=== PATIENT | male | born 1965 | race Caucasian/White ===

== ENCOUNTER 2018-07-31 04:29 | Observation (INO) | payer SELFPAY ==
[2018-07-31] VITALS (14 sets, daily range): BP systolic 101–140; BP diastolic 43–86; PULSE 55–82; RESP 14–16; TEMP 36.8–36.9; O2SAT 96–98; BMI 27.1
--- NOTE | 2018-07-31 04:33 | PCM.HP.STD ---
Problem List (1) Chest pain Status: Acute Qualifiers: Chest pain type: unspecified Qualified Code(s): R07.9 - Chest pain, unspecified (2) Cardiac enzymes elevated Status: Acute (3) LILIAM (obstructive sleep apnea) Status: Chronic History of Present Illness Date of Admission: 07/31/18 Chief Complaint: Chest pain The patient is a 53 y/o w/ PMHx: LILIAM who presents to the [facility] from [place] w/ history of onset fluttering in his chest with sensation of needing to take a deep breath but not specifically dyspnea with concurrent midsternal chest pressure with occasional radiation to the central neck region, intermittent, lasting minutes, starting afternoon prior to day of presentation with (RN) BP check at home elevated SBP 160s with no HTN history. Patient noted discomfort independent of activity. Chest pain during episode when discussed transfer with ED at [place]. Work-up at [place] included CBC w/ WBC 7.5, Hgb 13.8, Plts 287 without shift, BMP w/ K 3.7, BUN/Cr 17/0.91, glucose 118, Trop 0.18 (<0.07) indeterminant, D-dimer 373 (<450 normal), TSH 4.12 (normal), EKG: NSR with no ST changes, no evidence of ischemia, repeat x 1 and no change, CXR: No acute findings. In the [place] ED patient administered ASA 81 mg x 4. Past Medical History Past Medical History (Chronic Problems): Chronic Problems LILIAM (obstructive sleep apnea) (Chronic) NKDA Home Medications: Ambulatory Orders Medication Instructions Recorded NK 07/31/18 Surgical History: no surgical history Psychiatric History: No pertinent psych hx Lives: Spouse/ Significant Other Tobacco Use: Non-smoker Alcohol: None Drugs: None - *Family History Maternal History Items: - - Patient notes a maternal family history of suspected paroxysmal atrial fibrillation with history of ablation in addition to maternal grandfather with heart disease and CHF. Paternal History Items: - - Patient notes a paternal family history of heart disease and congestive heart failure in a paternal grandfather. Review of Systems Constitutional: Denies: Chills, Fever, Weight Change HEENT: Denies: Head Aches, Sinus Congestion, Sinus Drainage Cardiovascular: Reports: Chest Pain, Chest Pressure. Denies: Edema, Heaviness, Light Headedness, Orthopnea, Palpitations, Syncope Respiratory: Reports: Shortness of Breath. Denies: Cough, Shortness of breath at rest, Sputum production Gastrointestinal: Denies: Abdominal Pain, Nausea, Vomiting Genitourinary: Denies: Dysuria Musculoskeletal: Reports: Neck Pain. Denies: Joint Pain, Joint Tenderness Skin: Denies: Rash, Wounds Neurological: Denies: Numbness, Tingling, Focal weakness Psychiatric: Denies: Anxiety, Depression, Homicidal Ideations, Suicidal Ideations Hematologic/ Lymphatic: Denies: Easy Bruising, Easy Bleeding VTE Information - Inpt Only VTE Present on Admission: No VTE Mechan Device Prophylaxis: SCD's VTE Pharm Prophylaxis ordered?: Yes Subjective: Seated upright in the PCU bed, NAD. Objective: VS: T 98.5, RR 16, BP 140/86, HR 81, 98% on RA. Physical Examination: General: awake, alert, oriented x 3 and cooperative, seated upright in the PCU bed in no apparent distress. Skin: normal color, turgor, no icterus, cyanosis. HEENT: AT/NC, EOMI, PERRLA, MMM, no carotid bruits or JVD noted. Lungs: CTA bilaterally, moderate effort, mild decrease BL bases, no rales, ronchi or wheezing. Heart: Regular rate and rhythm; no gallop, rub audible. Abdomen: soft, NTTP, ND, normal BS, no HSM. Extremities: no cyanosis, clubbing, or edema. Neurological: patient awake, alert, oriented x 3; cognitive function intact; pupils equally reactive to light and accomodation; cranial nerves II-XII grossly normal, moving all 4 extremities, no focal deficits, strength preserved. Psychiatric: affect appears normal, no acute evidence of depressive or anxiety feelings. Assessment/Plan All Active Problems Chest pain (Acute) Cardiac enzymes elevated (Acute) The patient is a 53 y/o w/ no marked PMHx who presents to the [facility] from [place] w/ history of onset fluttering in his chest with sensation of needing to take a deep breath but not specifically dyspnea with concurrent midsternal chest pressure with occasional radiation to the central neck region, intermittent, lasting minutes, starting afternoon prior to day of presentation with (RN) BP check at home elevated SBP 160s with no HTN history. (1) Chest Pain: Work-up at [place] included CBC w/ WBC 7.5, Hgb 13.8, Plts 287 without shift, BMP w/ K 3.7, BUN/Cr 17/0.91, glucose 118, Trop 0.18 (<0.07) indeterminant, D-dimer 373 (<450 normal), TSH 4.12 (normal), EKG: NSR with no ST changes, no evidence of ischemia, repeat x 1 and no change, CXR: No acute findings. Will admit to PCU, place on a monitored bed to assure no acute myocardial infarction with serial cardiac enzymes and EKGs. Patient is able to perform exercise and does not have LBBB, V-pacing, ST-T changes, LVH, prior PCI history and is not on digoxin thus will proceed with AM exercise stress ECHO. ASA, NG, morphine. FLP in AM. Mag pending. (2) Elevated BP without HTN Dx: Will continue to monitor BP, if remains elevated would initiate regimen, PRN hydralazine in interim. (3) LILIAM: CPAP q HS. (4) DVT Prophylaxis: SCDs, lovenox. Code Visit OBSV E&M: 72258 Initial observation care L3
--- NOTE | 2018-07-31 04:35 | EKG12_ITS ---
Test Reason : AM EKG Blood Pressure : / mmHG Vent. Rate : 059 BPM Atrial Rate : 059 BPM P-R Int : 150 ms QRS Dur : 094 ms QT Int : 424 ms P-R-T Axes : 064 066 048 degrees QTc Int : 419 ms Sinus bradycardia Otherwise normal ECG When compared with ECG of 31-JUL-2018 05:17, MANUAL COMPARISON REQUIRED, DATA IS UNCONFIRMED Confirmed by WILLIS HERNANDEZ, LEIGHA ([id number]), manager editorial JAKE PADILLA ([id number]) on 08/03/2018 4:02:53 PM Referred By: DOROTA Confirmed By:LEIGHA PEDRO MD
--- NOTE | 2018-07-31 04:40 | HP.PCM_ITS ---
Problem List (1) Chest pain Status: Acute Qualifiers: Chest pain type: unspecified Qualified Code(s): R07.9 - Chest pain, unspecified (2) Cardiac enzymes elevated Status: Acute (3) LILIAM (obstructive sleep apnea) Status: Chronic History of Present Illness Date of Admission: 07/31/18 Chief Complaint: Chest pain The patient is a 53 y/o w/ PMHx: LILIAM who presents to the [facility] from [place] w/ history of onset fluttering in his chest with sensation of needing to take a deep breath but not specifically dyspnea with concurrent midsternal chest pressure with occasional radiation to the central neck region, intermittent, lasting minutes, starting afternoon prior to day of presentation with (RN) BP check at home elevated SBP 160s with no HTN history. Patient noted discomfort independent of activity. Chest pain during episode when discussed transfer with ED at [place]. Work-up at [place] included CBC w/ WBC 7.5, Hgb 13.8, Plts 287 without shift, BMP w/ K 3.7, BUN/Cr 17/0.91, glucose 118, Trop 0.18 (<0.07) indeterminant, D-dimer 373 (<450 normal), TSH 4.12 (normal), EKG: NSR with no ST changes, no evidence of ischemia, repeat x 1 and no change, CXR: No acute findings. In the [place] ED patient administered ASA 81 mg x 4. Past Medical History Past Medical History (Chronic Problems): Chronic Problems LILIAM (obstructive sleep apnea) (Chronic) NKDA Home Medications: Ambulatory Orders Medication Instructions Recorded NK 07/31/18 Surgical History: no surgical history Psychiatric History: No pertinent psych hx Lives: Spouse/ Significant Other Tobacco Use: Non-smoker Alcohol: None Drugs: None - *Family History Maternal History Items: - - Patient notes a maternal family history of suspected paroxysmal atrial fibrillation with history of ablation in addition to maternal grandfather with heart disease and CHF. Paternal History Items: - - Patient notes a paternal family history of heart disease and congestive heart failure in a paternal grandfather. Review of Systems Constitutional: Denies: Chills, Fever, Weight Change HEENT: Denies: Head Aches, Sinus Congestion, Sinus Drainage Cardiovascular: Reports: Chest Pain, Chest Pressure. Denies: Edema, Heaviness, Light Headedness, Orthopnea, Palpitations, Syncope Respiratory: Reports: Shortness of Breath. Denies: Cough, Shortness of breath at rest, Sputum production Gastrointestinal: Denies: Abdominal Pain, Nausea, Vomiting Genitourinary: Denies: Dysuria Musculoskeletal: Reports: Neck Pain. Denies: Joint Pain, Joint Tenderness Skin: Denies: Rash, Wounds Neurological: Denies: Numbness, Tingling, Focal weakness Psychiatric: Denies: Anxiety, Depression, Homicidal Ideations, Suicidal Ideations Hematologic/ Lymphatic: Denies: Easy Bruising, Easy Bleeding VTE Information - Inpt Only VTE Present on Admission: No VTE Mechan Device Prophylaxis: SCD's VTE Pharm Prophylaxis ordered?: Yes Subjective: Seated upright in the PCU bed, NAD. Objective: VS: T 98.5, RR 16, BP 140/86, HR 81, 98% on RA. Physical Examination: General: awake, alert, oriented x 3 and cooperative, seated upright in the PCU bed in no apparent distress. Skin: normal color, turgor, no icterus, cyanosis. HEENT: AT/NC, EOMI, PERRLA, MMM, no carotid bruits or JVD noted. Lungs: CTA bilaterally, moderate effort, mild decrease BL bases, no rales, ronchi or wheezing. Heart: Regular rate and rhythm; no gallop, rub audible. Abdomen: soft, NTTP, ND, normal BS, no HSM. Extremities: no cyanosis, clubbing, or edema. Neurological: patient awake, alert, oriented x 3; cognitive function intact; pupils equally reactive to light and accomodation; cranial nerves II-XII grossly normal, moving all 4 extremities, no focal deficits, strength preserved. Psychiatric: affect appears normal, no acute evidence of depressive or anxiety feelings. Assessment/Plan All Active Problems Chest pain (Acute) Cardiac enzymes elevated (Acute) The patient is a 53 y/o w/ no marked PMHx who presents to the [facility] from [place] w/ history of onset fluttering in his chest with sensation of needing to take a deep breath but not specifically dyspnea with concurrent midsternal chest pressure with occasional radiation to the central neck region, intermittent, lasting minutes, starting afternoon prior to day of presentation with (RN) BP check at home elevated SBP 160s with no HTN history. (1) Chest Pain: Work-up at [place] included CBC w/ WBC 7.5, Hgb 13.8, Plts 287 without shift, BMP w/ K 3.7, BUN/Cr 17/0.91, glucose 118, Trop 0.18 (<0.07) indeterminant, D-dimer 373 (<450 normal), TSH 4.12 (normal), EKG: NSR with no ST changes, no evidence of ischemia, repeat x 1 and no change, CXR: No acute findings. Will admit to PCU, place on a monitored bed to assure no acute myocardial infarction with serial cardiac enzymes and EKGs. Patient is able to perform exercise and does not have LBBB, V-pacing, ST-T changes, LVH, prior PCI history and is not on digoxin thus will proceed with AM exercise stress ECHO. ASA, NG, morphine. FLP in AM. Mag pending. (2) Elevated BP without HTN Dx: Will continue to monitor BP, if remains elevated would initiate regimen, PRN hydralazine in interim. (3) LILIAM: CPAP q HS. (4) DVT Prophylaxis: SCDs, lovenox. Code Visit OBSV E&M: 47052 Initial observation care L3
[2018-07-31] MEDS: 0.9% Normal Saline 1,000 ML 100 ML IV ×2 (05:38→15:46)
[2018-07-31 05:44] LABS: Cholesterol 198 mg/dL (200); High Density Lipoprotein 31 mg/dL; Magnesium 2.3 mg/dL (1.6-2.6); Triglycerides 151 mg/dL; Very Low Density Lipoprotein 30 mg/dL (5-40)
[2018-07-31 06:09] LABS: Hematocrit 41.9 % (40-54); Hemoglobin 14.7 g/dl (13.0-16.5); Mean Corp Hgb Conc 35.1 g/gl (32-36); Mean Corpuscular Hgb 29.4 pg (27.0-32.0); Mean Corpuscular Volume 83.8 fL (80-94); Mean Platelet Vol. 9.6 fl (6.2-12.0); Platelet Count 283 K/mm3 (150-450); RBC Distribution Width CV 12.4 % (11.6-14.6); RBC Distribution Width SD 37.4 fl (35.1-43.9)
[2018-07-31 06:10] LABS: Scan Indicated on CBC? Y/N NO
[2018-07-31 06:12] LABS: International Normalized Ratio 1.1; Prothrombin Time (Protime)PT. 13.9 SECONDS (11.7-14.9)
[2018-07-31 06:13] LABS: Partial Thromboplast Time 37.1 Seconds (24.1-36.2)
[2018-07-31 06:24] LABS: Anion Gap 11 (5-15); BUN 16 mg/dL (7-18); BUN/Creat Ratio 15.2 RATIO (10-20); Calcium,Total 8.9 mg/dL (8.5-10.1); Chloride 106 mmol/L (98-107); Creatinine, Serum 1.05 mg/dL (0.70-1.30); EST Glomerular Filtration Rate 79 mL/min (>60); Est Glom Filt Rate - Afr Amer 96 mL/min (>60); Estimated Creatinine Clearance 75.11 ml/min; Glucose 96 mg/dL (74-106); Sodium Level 141 mmol/L (136-145)
[2018-07-31] MEDS: Enoxaparin 80 MG/0.8 ML Syringe 70 MG SC ×2 (06:57→18:51)
--- NOTE | 2018-07-31 10:06 | ECHOD_ITS ---
Reason For Study: Chest Pain Procedure This was a 2D Doppler, Color Flow transthoracic echocardiogram. Exam performed portable in patient room. Left Ventricle Normal LV size. Left ventricular systolic function is normal. The estimated ejection fraction is 55 %. No evidence for diastolic dysfunction. No regional wall motion abnormalities noted. Right Ventricle Normal RV size. Normal systolic function. Atria Normal left atrium. Normal right atrium. Mitral Valve Normal mitral valve. Tricuspid Valve Normal tricuspid valve. Aortic Valve Normal aortic valve. Trisinus/trileaflet aortic valve. Pulmonic Valve Normal pulmonic valve. Great Vessels Normal aortic root. The pulmonary artery is normal size. Normal inferior vena cava. Pericardium/Pleural No pericardial effusion. MMode/2D Measurements & Calculations LVIDd: 4.1 cm IVSd: 0.87 cm Ao root diam: 3.6 cm LVIDs: 2.3 cm LVPWd: 0.96 cm LA dimension: 2.7 cm RVDd: 3.7 cm FS: 43.8 % LAV(MOD-sp4): 23.5 ml LA A4 area: 11.1 cm2 RA A4 area: 14.7 cm2 Time Measurements MV dec time: 0.23 sec Doppler Measurements & Calculations MV E max harry: 83.6 cm/sec Lat Peak E' Harry: 12.1 cm/sec Med Peak E' Harry: 9.8 cm/sec MV A max harry: 73.3 cm/sec E/E' lat: 6.9 E/E' med: 8.5 MV E/A: 1.1 MV V2 max: 104.0 cm/sec MV P1/2t max harry: 105.9 cm/sec Ao V2 max: 129.0 cm/sec MV max P.3 mmHg MV P1/2t: 74.6 msec Ao max P.7 mmHg MV V2 mean: 56.6 cm/sec MV dec slope: 416.0 cm/sec2 MV mean P.5 mmHg MVA(P1/2t): 2.9 cm2 MV V2 VTI: 31.2 cm LV V1 max: 111.8 cm/sec PA V2 max: 97.3 cm/sec TR max harry: 218.6 cm/sec LV V1 max P.0 mmHg TR max P.1 mmHg Interpretation Summary Normal LV size. Left ventricular systolic function is normal. The estimated ejection fraction is 55 %. No evidence for diastolic dysfunction. Structurally normal valves. Ordering Physician: Anthony Roach Performed By: Иван Zaman RCS
[2018-07-31] MEDS: Famotidine 20 MG Tablet PO ×2 (10:12→21:29)
[2018-07-31] MEDS: Aspirin E.C. 81 MG Tablet PO (10:12)
--- NOTE | 2018-07-31 10:29 | PCM.CONS.C ---
Reason for Consult Date of Consultation: 07/31/18 Reason for Consultation: Abnormal cardiac enzymes History of Present Illness: The patient is a 53 year old M The patient is a 53 y/o with no significant past medical history who presented to [facility] with a sensation of needing to take a deep breath as well as midsternal chest discomfort. This was radiating to the neck region. It started in the afternoon prior to the date of presentation. They had presented to [facility] and a workup of the was unremarkable other than a mildly indeterminate troponin level. They decided to transfer the patient here. Patient was seen was noted to be stable with no EKG changes. However troponins were noted to be mildly abnormal. He has had no palpitations no dizziness no diaphoresis no near syncope or syncope. Past Medical History Allergies/Adverse Reactions: Allergies ibuprofen Adverse Reaction (Verified 07/31/18 05:16) Hives Home Medications: Ambulatory Orders Medication Instructions Recorded NK 07/31/18 Past Medical History (Chronic Problems): Chronic Problems LILIAM (obstructive sleep apnea) (Chronic) Surgical History: no surgical history Psychiatric History: No pertinent psych hx - *Family History Maternal History Items: - - Patient notes a maternal family history of suspected paroxysmal atrial fibrillation with history of ablation in addition to maternal grandfather with heart disease and CHF. Paternal History Items: - - Patient notes a paternal family history of heart disease and congestive heart failure in a paternal grandfather. Lives: Spouse/ Significant Other Smoking Status: Former smoker Tobacco Use: Non-smoker Alcohol: None Drugs: None Review of Systems - Review of Systems General: Denies: Fever, Night Sweats, Fatigue HEENT: Denies: Vision Change Cardiovascular: Reports: Chest Discomfort, Chest Discomfort at Rest. Denies: Shortness of Breath, Orthopnea, PND, Peripheral Edema, Palpitations, Lightheadedness, Dizziness, Near Syncope, Syncope Respiratory: Denies: Cough, Sputum Production, Hemoptysis Gastrointestinal: Denies: Indigestion, Hematemesis, Hematochezia, Melena Genitourinary: Denies: Dysuria, Hematuria Muscoloskeletal: Denies: Myalgias Skin: Denies: Rash Neurological: Denies: Dizziness Psychiatric: Denies: Anxiety Endocrine: Denies: Unexplained Weight Loss Hematologic/ Lymphatic: Denies: Anemia Subjectve: Present gentleman in no apparent distress Objective: Vital Signs Temp Pulse Resp BP Pulse Ox 98.5 F 79 16 140/86 H 97 07/31/18 05:20 07/31/18 06:56 07/31/18 05:20 07/31/18 05:20 07/31/18 07:30 Oxygen Delivery Method Room Air Weight: 167 lb 12.348 oz Body Mass Index (BMI) 27.1 General: Awake, Alert, Oriented x 3 HEENT: PERRL, EOMI, Sclera Non Icteric Neck: Supple, Good ROM, No Lymph Node Enlargement Lungs: Clear to auscultation Cardiovascular: Regular Rhythm, Normal S1, Normal S2, No Murmurs, No Rubs, No Gallops Vascular: No Carotid Bruits, Normal Femoral Pulses, Normal Radial Pulses, Normal Dorsalis Pedal Pulse, Normal Posterior Tibial Pulses Abdomen: Bowel Sounds Present, Soft, Non Tender, No HSM, No Organomegaly Extremities: No Cyanosis, No Clubbing, No edema Lymphatic: No Lymph Node Enlargement Neurological: No Focal Motor or Sensory Deficit Psych/Mental Status: Appropriate 07/31/18 05:12: Magnesium 2.3, Troponin I 0.423 H, Triglycerides 151, Cholesterol 198, LDL Cholesterol 137 H, VLDL Cholesterol 30, HDL Cholesterol 31 L 07/31/18 05:12: WBC 6.0, RBC 5.00, Hgb 14.7, Hct 41.9, MCV 83.8, MCH 29.4, MCHC 35.1, RDW 12.4, RDW Differential 37.4, Plt Count 283, MPV 9.6 07/31/18 05:12: PT 13.9, INR 1.1, APTT 37.1 H 07/31/18 05:12: Sodium 141, Potassium 4.0, Chloride 106, Carbon Dioxide 24.0, Anion Gap 11, BUN 16, Creatinine 1.05, Est GFR (MDRD) Af Amer 96, Est GFR (MDRD) Non-Af 79, BUN/Creatinine Ratio 15.2, Glucose 96, Calcium 8.9 07/31/18 07:52: Troponin I 0.358 H Rhythm: EKG: Sinus rhythm with no acute changes Assessment/Plan 1. Unstable angina Patient presented with chest discomfort and abnormal cardiac troponin enzymes. The above appears to be indicative of unstable angina. My recommendation would be for us to continue him on aspirin clopidogrel and beta-tahir Based on his troponin levels I would suggest that we proceed with a cardiac catheterization the risk benefits and alternatives have been explained to him he understands and agrees to proceed. An echocardiogram should be performed to assess his left ventricular function. 2. Hypertension Blood pressure was noted to be elevated. Recommend aggressive treatment of the above. 3. Hyperlipidemia He does have a history of mild lipid abnormalities. Would recommend the addition of high intensity statin. Thank you for allowing me to participate in the care of your patient. Please don't hesitate to call if any issues arise
--- NOTE | 2018-07-31 10:34 | CON.PCM_ITS ---
Reason for Consult Date of Consultation: 07/31/18 Reason for Consultation: Abnormal cardiac enzymes History of Present Illness: The patient is a 53 year old M The patient is a 53 y/o with no significant past medical history who presented to [facility] with a sensation of needing to take a deep breath as well as midsternal chest discomfort. This was radiating to the neck region. It started in the afternoon prior to the date of presentation. They had presented to [facility] and a workup of the was unremarkable other than a mildly indeterminate troponin level. They decided to transfer the patient here. Patient was seen was noted to be stable with no EKG changes. However troponins were noted to be mildly abnormal. He has had no palpitations no dizziness no diaphoresis no near syncope or syncope. Past Medical History Allergies/Adverse Reactions: Allergies ibuprofen Adverse Reaction (Verified 07/31/18 05:16) Hives Home Medications: Ambulatory Orders Medication Instructions Recorded NK 07/31/18 Past Medical History (Chronic Problems): Chronic Problems LILIAM (obstructive sleep apnea) (Chronic) Surgical History: no surgical history Psychiatric History: No pertinent psych hx - *Family History Maternal History Items: - - Patient notes a maternal family history of suspected paroxysmal atrial fibrillation with history of ablation in addition to maternal grandfather with heart disease and CHF. Paternal History Items: - - Patient notes a paternal family history of heart disease and congestive heart failure in a paternal grandfather. Lives: Spouse/ Significant Other Smoking Status: Former smoker Tobacco Use: Non-smoker Alcohol: None Drugs: None Review of Systems - Review of Systems General: Denies: Fever, Night Sweats, Fatigue HEENT: Denies: Vision Change Cardiovascular: Reports: Chest Discomfort, Chest Discomfort at Rest. Denies: Shortness of Breath, Orthopnea, PND, Peripheral Edema, Palpitations, Lightheadedness, Dizziness, Near Syncope, Syncope Respiratory: Denies: Cough, Sputum Production, Hemoptysis Gastrointestinal: Denies: Indigestion, Hematemesis, Hematochezia, Melena Genitourinary: Denies: Dysuria, Hematuria Muscoloskeletal: Denies: Myalgias Skin: Denies: Rash Neurological: Denies: Dizziness Psychiatric: Denies: Anxiety Endocrine: Denies: Unexplained Weight Loss Hematologic/ Lymphatic: Denies: Anemia Subjectve: Present gentleman in no apparent distress Objective: Vital Signs Temp Pulse Resp BP Pulse Ox 98.5 F 79 16 140/86 H 97 07/31/18 05:20 07/31/18 06:56 07/31/18 05:20 07/31/18 05:20 07/31/18 07:30 Oxygen Delivery Method Room Air Weight: 167 lb 12.348 oz Body Mass Index (BMI) 27.1 General: Awake, Alert, Oriented x 3 HEENT: PERRL, EOMI, Sclera Non Icteric Neck: Supple, Good ROM, No Lymph Node Enlargement Lungs: Clear to auscultation Cardiovascular: Regular Rhythm, Normal S1, Normal S2, No Murmurs, No Rubs, No Gallops Vascular: No Carotid Bruits, Normal Femoral Pulses, Normal Radial Pulses, Normal Dorsalis Pedal Pulse, Normal Posterior Tibial Pulses Abdomen: Bowel Sounds Present, Soft, Non Tender, No HSM, No Organomegaly Extremities: No Cyanosis, No Clubbing, No edema Lymphatic: No Lymph Node Enlargement Neurological: No Focal Motor or Sensory Deficit Psych/Mental Status: Appropriate 07/31/18 05:12: Magnesium 2.3, Troponin I 0.423 H, Triglycerides 151, Cholesterol 198, LDL Cholesterol 137 H, VLDL Cholesterol 30, HDL Cholesterol 31 L 07/31/18 05:12: WBC 6.0, RBC 5.00, Hgb 14.7, Hct 41.9, MCV 83.8, MCH 29.4, MCHC 35.1, RDW 12.4, RDW Differential 37.4, Plt Count 283, MPV 9.6 07/31/18 05:12: PT 13.9, INR 1.1, APTT 37.1 H 07/31/18 05:12: Sodium 141, Potassium 4.0, Chloride 106, Carbon Dioxide 24.0, Anion Gap 11, BUN 16, Creatinine 1.05, Est GFR (MDRD) Af Amer 96, Est GFR (MDRD) Non-Af 79, BUN/Creatinine Ratio 15.2, Glucose 96, Calcium 8.9 07/31/18 07:52: Troponin I 0.358 H Rhythm: EKG: Sinus rhythm with no acute changes Assessment/Plan 1. Unstable angina Patient presented with chest discomfort and abnormal cardiac troponin enzymes. The above appears to be indicative of unstable angina. My recommendation would be for us to continue him on aspirin clopidogrel and beta-tahir * Based on his troponin levels I would suggest that we proceed with a cardiac catheterization the risk benefits and alternatives have been explained to him he understands and agrees to proceed. * An echocardiogram should be performed to assess his left ventricular function. 2. Hypertension * Blood pressure was noted to be elevated. * Recommend aggressive treatment of the above. * 3. Hyperlipidemia * He does have a history of mild lipid abnormalities. Would recommend the addition of high intensity statin. * * Thank you for allowing me to participate in the care of your patient. Please don't hesitate to call if any issues arise
--- NOTE | 2018-07-31 11:59 | CASEMGMT ---
Social Work Note SW received referral from physician for financial resources as pt is part of [employer] and has no insurance. SW reviewed pt's chart and pt has [employer] insurance listed. Jerilyn Honeycutt PRODUCE ASSISTANT, BATCHER OPERATOR
--- NOTE | 2018-07-31 12:17 | PCM.PROGNOTE ---
<Sylvia Marquez - Last Filed: 07/31/18 12:22> Subjective: Patient seen and examined. Denies further chest pain. Plan for cardiac catheterization on Thursday. Patient agreeable. - Physical Exam General: Alert, Oriented x3, Cooperative HEENT: Atraumatic, PERRLA, EOMI, Normocephalic Neck: Supple, No JVD, Negative Carotid Bruits Lungs: Clear to auscultation, Normal air movement Cardiovascular: Regular rate, Regular Rhythm, Normal S1, Normal S2, No murmurs Abdomen: Bowel Sounds Present, Soft, Non Tender, Non-Distended Extremities: No clubbing, No cyanosis, No edema, Capillary Refill Less than 3 Seconds Skin: No rashes, No breakdown Musculoskeletal: No Tenderness to Palpation of Joints or Extremities Neurological: Cranial nerves II-XII grossly intact, Neuro grossly intact Psych/Mental Status: Normal Affect, Appropriate Vital Signs Temp Pulse Resp BP Pulse Ox 98.3 F 71 16 127/84 H 96 07/31/18 11:00 07/31/18 11:00 07/31/18 11:00 07/31/18 11:00 07/31/18 11:00 Oxygen Delivery Method Room Air Weight: 167 lb 12.348 oz Body Mass Index (BMI) 27.1 Laboratory Tests Past 24 Hrs 07/31/18 07/31/18 07/31/18 05:12 05:12 05:12 WBC 6.0 RBC 5.00 Hgb 14.7 Hct 41.9 MCV 83.8 MCH 29.4 MCHC 35.1 RDW 12.4 RDW Differential 37.4 Plt Count 283 MPV 9.6 PT 13.9 INR 1.1 APTT 37.1 H Sodium Potassium Chloride Carbon Dioxide Anion Gap BUN Creatinine Estim Creat Clear Calc Est GFR (MDRD) Af Amer Est GFR (MDRD) Non-Af BUN/Creatinine Ratio Glucose Calcium Magnesium 2.3 Troponin I 0.423 H Triglycerides 151 Cholesterol 198 LDL Cholesterol 137 H VLDL Cholesterol 30 HDL Cholesterol 31 L 07/31/18 07/31/18 07/31/18 05:12 07:52 11:18 WBC RBC Hgb Hct MCV MCH MCHC RDW RDW Differential Plt Count MPV PT INR APTT Sodium 141 Potassium 4.0 Chloride 106 Carbon Dioxide 24.0 Anion Gap 11 BUN 16 Creatinine 1.05 Estim Creat Clear Calc 75.11 Est GFR (MDRD) Af Amer 96 Est GFR (MDRD) Non-Af 79 BUN/Creatinine Ratio 15.2 Glucose 96 Calcium 8.9 Magnesium Troponin I 0.358 H 0.345 H Triglycerides Cholesterol LDL Cholesterol VLDL Cholesterol HDL Cholesterol Medical Necessity - Tobacco Use Smoking Status: Former smoker Tobacco Use: Non-smoker Assessment/Plan All Active Problems Chest pain (Acute) Cardiac enzymes elevated (Acute) 1. Unstable angina with abnormal troponin-troponin 0.4, 0.3, 0.3. EKG without ST-T changes. Chest x-ray without acute findings. Cardiology consulted. Echo pending. Patient to undergo cardiac catheterization Thursday morning. Continue aspirin, statin, Plavix, metoprolol. 2. Hypertension-continue metoprolol. Continue to monitor. 3. Hyperlipidemia-continue statin. 4. Palpitations-telemetry with PVCs. Continue to monitor telemetry. Continue metoprolol. 5. Obstructive sleep apnea-continue CPAP nightly. DVT prophylaxis-Lovenox subcu. This patient was seen by YUVAL Trinh under the supervision of Dr. Palmer. <Janes Palmer - Last Filed: 07/31/18 13:46> - Physical Exam Vital Signs Temp Pulse Resp BP Pulse Ox 98.3 F 75 16 127/84 H 96 07/31/18 11:00 07/31/18 13:02 07/31/18 11:00 07/31/18 11:00 07/31/18 11:00 Oxygen Delivery Method Room Air Weight: 76.1 kg Body Mass Index (BMI) 27.1 Intake and Output for Last 24 Hours 07/29/18 07/30/18 07/31/18 23:59 23:59 23:59 Intake Total 1156 / 1156 Balance 1156 / 1156 Laboratory Tests Past 24 Hrs 07/31/18 07/31/18 07/31/18 05:12 05:12 05:12 WBC 6.0 RBC 5.00 Hgb 14.7 Hct 41.9 MCV 83.8 MCH 29.4 MCHC 35.1 RDW 12.4 RDW Differential 37.4 Plt Count 283 MPV 9.6 PT 13.9 INR 1.1 APTT 37.1 H Sodium Potassium Chloride Carbon Dioxide Anion Gap BUN Creatinine Estim Creat Clear Calc Est GFR (MDRD) Af Amer Est GFR (MDRD) Non-Af BUN/Creatinine Ratio Glucose Calcium Magnesium 2.3 Troponin I 0.423 H Triglycerides 151 Cholesterol 198 LDL Cholesterol 137 H VLDL Cholesterol 30 HDL Cholesterol 31 L 07/31/18 07/31/18 07/31/18 05:12 07:52 11:18 WBC RBC Hgb Hct MCV MCH MCHC RDW RDW Differential Plt Count MPV PT INR APTT Sodium 141 Potassium 4.0 Chloride 106 Carbon Dioxide 24.0 Anion Gap 11 BUN 16 Creatinine 1.05 Estim Creat Clear Calc 75.11 Est GFR (MDRD) Af Amer 96 Est GFR (MDRD) Non-Af 79 BUN/Creatinine Ratio 15.2 Glucose 96 Calcium 8.9 Magnesium Troponin I 0.358 H 0.345 H Triglycerides Cholesterol LDL Cholesterol VLDL Cholesterol HDL Cholesterol Assessment/Plan This patient was seen in conjunction with YUVAL Trinh . I have independently interviewed and examined the patient and reviewed pertinent historical, laboratory, and other data. Please refer to YUVAL Trinh note for details of this patient's presentation, findings, and recommendations. I have reviewed YUVAL Trinh note and concur with documented findings. In brief, patient is a 83-year-old gentleman with past medical history significant only for obstructive sleep apnea who presented with chest pain found to have elevated troponin consistent with acute non-STEMI. Admitted to monitored bed with consultation placed to cardiac Physical Examination: GENERAL: cooperative HEENT: Atraumatic; moist oral mucosa EYES; Anicteric, Normal Conjunctiva NECK; supple, normal thyroid, no distended JVD. RESPIRATORY: Diminished to auscultation bilaterally, CARDIOVASCULAR: Regular S1 S2, no audible murmurs GI: soft, non-tender, normoactive bowel sounds, : No Renal angle tenderness; EXTREMITIES: No edema, no clubbing, NEURO: Awake; no lateralizing signs. SKIN: No Rash PSYCH; Normal affect Assessment: 1. Acute non-STEMI 2. Palpitations EKG monitoring demonstrated only PVCs 3. Obstructive sleep apnea 4. Dyslipidemia 5. Essential hypertension stage I Recommendations: 1. I have discussed the results of my overview and impressions with the patient 2. Options for management were reviewed Code Visit Inpatient E&M: 21776 Subs Hosp L3
[2018-07-31] MEDS: Clopidogrel Bisulfate 300 MG Tablet PO (13:01)
[2018-07-31] MEDS: Metoprolol Tartrate 25 MG Tablet PO ×2 (13:02→22:20)
--- NOTE | 2018-07-31 15:53 | CM.UR ---
See mechanism inspector. met face to face with patient and his . Introduced myself and my role. Plan is for heart cath Thursday. Denies anticipating any needs. Him and his are hoping it was just stress. Has [facility] so if transfer is needed for further intervention--he would need to be transferred to [facility]. Lesli Dudley RN, [facility].
[2018-07-31] MEDS: Atorvastatin Calcium 40 MG Tablet PO (21:29)
[2018-08-01] VITALS (13 sets, daily range): BP systolic 97–123; BP diastolic 57–72; PULSE 52–80; RESP 16; TEMP 36.6–36.9; O2SAT 96–98
[2018-08-01] MEDS: 0.9% Normal Saline 1,000 ML 100 ML IV (01:55)
[2018-08-01] MEDS: Enoxaparin 80 MG/0.8 ML Syringe 70 MG SC ×2 (06:47→18:33)
--- NOTE | 2018-08-01 08:43 | PCM.PN.CARD ---
Subjectve: Patient seen and evaluated and appears to be doing well. Objective: Vital Signs Temp Pulse Resp BP Pulse Ox 98.0 F 61 16 101/67 96 08/01/18 04:15 08/01/18 04:15 08/01/18 04:15 08/01/18 04:15 08/01/18 08:12 Oxygen Delivery Method Room Air Weight: 167 lb 12.348 oz Body Mass Index (BMI) 27.1 Intake and Output for Last 24 Hours 07/30/18 07/31/18 08/01/18 23:59 23:59 23:59 Intake Total 2341 / 2341 1671 / 1671 Balance 2341 1671 / 1671 General: Awake, Alert, Oriented x 3 HEENT: PERRL, EOMI, Sclera Non Icteric Neck: Supple, Good ROM, No Lymph Node Enlargement Lungs: Clear to auscultation Cardiovascular: Regular Rhythm, Normal S1, Normal S2, No Murmurs, No Rubs, No Gallops Vascular: No Carotid Bruits, Normal Femoral Pulses, Normal Radial Pulses, Normal Dorsalis Pedal Pulse, Normal Posterior Tibial Pulses Abdomen: Bowel Sounds Present, Soft, Non Tender, No HSM, No Organomegaly Extremities: No Cyanosis, No Clubbing, No edema Musculoskeletal: No Erythema Skin: No Rashes Lymphatic: No Lymph Node Enlargement Neurological: No Focal Motor or Sensory Deficit Psych/Mental Status: Appropriate 07/31/18 07:52: Troponin I 0.358 H 07/31/18 11:18: Troponin I 0.345 H Rhythm: EKG: ECHO: Stress Test: Cardiac Cath: PCI: CT Surgery: Holter monitor: EPS: PPM: CXR: Chest CT Scan: Medical Necessity - Tobacco Use Smoking Status: Former smoker Tobacco Use: Non-smoker Assessment/Plan 1. Unstable angina Patient presented with chest discomfort and abnormal cardiac troponin enzymes. The above appears to be indicative of unstable angina. My recommendation would be for us to continue him on aspirin clopidogrel and beta-tahir Based on his troponin levels I would suggest that we proceed with a cardiac catheterization the risk benefits and alternatives have been explained to him he understands and agrees to proceed. An echocardiogram performed to assess his left ventricular function which was 55-60%. 2. Hypertension Blood pressure was noted to be elevated. Recommend aggressive treatment of the above. 3. Hyperlipidemia He does have a history of mild lipid abnormalities. Would recommend the addition of high intensity statin. Thank you for allowing me to participate in the care of your patient. Please don't hesitate to call if any issues arise
--- NOTE | 2018-08-01 08:50 | PN.CARD_ITS ---
Subjectve: Patient seen and evaluated and appears to be doing well. Objective: Vital Signs Temp Pulse Resp BP Pulse Ox 98.0 F 61 16 101/67 96 08/01/18 04:15 08/01/18 04:15 08/01/18 04:15 08/01/18 04:15 08/01/18 08:12 Oxygen Delivery Method Room Air Weight: 167 lb 12.348 oz Body Mass Index (BMI) 27.1 Intake and Output for Last 24 Hours 07/30/18 07/31/18 08/01/18 23:59 23:59 23:59 Intake Total 2341 / 234 1671 / 1671 Balance 2341 1671 / 1671 General: Awake, Alert, Oriented x 3 HEENT: PERRL, EOMI, Sclera Non Icteric Neck: Supple, Good ROM, No Lymph Node Enlargement Lungs: Clear to auscultation Cardiovascular: Regular Rhythm, Normal S1, Normal S2, No Murmurs, No Rubs, No Gallops Vascular: No Carotid Bruits, Normal Femoral Pulses, Normal Radial Pulses, Normal Dorsalis Pedal Pulse, Normal Posterior Tibial Pulses Abdomen: Bowel Sounds Present, Soft, Non Tender, No HSM, No Organomegaly Extremities: No Cyanosis, No Clubbing, No edema Musculoskeletal: No Erythema Skin: No Rashes Lymphatic: No Lymph Node Enlargement Neurological: No Focal Motor or Sensory Deficit Psych/Mental Status: Appropriate 07/31/18 07:52: Troponin I 0.358 H 07/31/18 11:18: Troponin I 0.345 H Rhythm: EKG: ECHO: Stress Test: Cardiac Cath: PCI: CT Surgery: Holter monitor: EPS: PPM: CXR: Chest CT Scan: Medical Necessity - Tobacco Use Smoking Status: Former smoker Tobacco Use: Non-smoker Assessment/Plan 1. Unstable angina Patient presented with chest discomfort and abnormal cardiac troponin enzymes. The above appears to be indicative of unstable angina. My recommendation would be for us to continue him on aspirin clopidogrel and beta-tahir * Based on his troponin levels I would suggest that we proceed with a cardiac catheterization the risk benefits and alternatives have been explained to him he understands and agrees to proceed. * An echocardiogram performed to assess his left ventricular function which was 55-60%. 2. Hypertension * Blood pressure was noted to be elevated. * Recommend aggressive treatment of the above. * 3. Hyperlipidemia * He does have a history of mild lipid abnormalities. Would recommend the addition of high intensity statin. * * Thank you for allowing me to participate in the care of your patient. Please don't hesitate to call if any issues arise
[2018-08-01] MEDS: Metoprolol Tartrate 25 MG Tablet PO (09:42)
[2018-08-01] MEDS: Aspirin E.C. 81 MG Tablet PO (09:43)
[2018-08-01] MEDS: Famotidine 20 MG Tablet PO ×2 (09:43→22:34)
[2018-08-01] MEDS: Clopidogrel Bisulfate 75 MG Tablet PO (09:43)
--- NOTE | 2018-08-01 12:27 | PCM.PROGNOTE ---
<Sylvia Marquez - Last Filed: 08/01/18 12:30> Subjective: Patient seen and examined. No acute events overnight. Denies chest pain currently. Plan for cardiac catheterization tomorrow. - Physical Exam General: Alert, Oriented x3, Cooperative HEENT: Atraumatic, PERRLA, EOMI, Normocephalic Neck: Supple, No JVD, Negative Carotid Bruits Lungs: Clear to auscultation, Normal air movement Cardiovascular: Regular rate, Regular Rhythm, Normal S1, Normal S2, No murmurs Abdomen: Bowel Sounds Present, Soft, Non Tender, Non-Distended Extremities: No clubbing, No cyanosis, No edema, Capillary Refill Less than 3 Seconds Skin: No rashes, No breakdown Musculoskeletal: No Tenderness to Palpation of Joints or Extremities Neurological: Cranial nerves II-XII grossly intact, Neuro grossly intact Psych/Mental Status: Normal Affect, Appropriate Vital Signs Temp Pulse Resp BP Pulse Ox 97.9 F 80 16 107/71 97 08/01/18 09:41 08/01/18 10:55 08/01/18 09:41 08/01/18 09:41 08/01/18 09:41 Oxygen Delivery Method Room Air Weight: 167 lb 12.348 oz Body Mass Index (BMI) 27.1 Intake and Output for Last 24 Hours 07/30/18 07/31/18 08/01/18 23:59 23:59 23:59 Intake Total 2342 / 2342 1671 / 1671 Balance 2342 / 2342 1671 / 1671 Medical Necessity - Tobacco Use Smoking Status: Former smoker Tobacco Use: Non-smoker Assessment/Plan All Active Problems Chest pain (Acute) Cardiac enzymes elevated (Acute) 1. Unstable angina with abnormal troponin-troponin 0.4, 0.3, 0.3. EKG without ST-T changes. Chest x-ray without acute findings. Cardiology consulted. Echo shows EF 55%, no evidence of diastolic dysfunction, structurally normal valves. Patient to undergo cardiac catheterization Thursday morning. Continue aspirin, statin, Plavix, metoprolol. 2. Hypertension-continue metoprolol. Continue to monitor. 3. Hyperlipidemia-continue statin. 4. Palpitations-telemetry with occasional PVCs. Continue to monitor telemetry. Continue metoprolol. 5. Obstructive sleep apnea-continue CPAP nightly. DVT prophylaxis-Lovenox subcu. This patient was seen by YUVAL Trinh under the supervision of Dr. Palmer. <Janes Palmer - Last Filed: 08/01/18 12:47> - Physical Exam Vital Signs Temp Pulse Resp BP Pulse Ox 97.9 F 80 16 107/71 97 08/01/18 09:41 08/01/18 10:55 08/01/18 09:41 08/01/18 09:41 08/01/18 09:41 Oxygen Delivery Method Room Air Weight: 76.1 kg Body Mass Index (BMI) 27.1 Intake and Output for Last 24 Hours 07/30/18 07/31/18 08/01/18 23:59 23:59 23:59 Intake Total 2342 / 2342 1671 / 1671 Balance 2342 / 2342 1671 / 1671 Assessment/Plan This patient was seen in conjunction with YUVAL Trinh . I have independently interviewed and examined the patient and reviewed pertinent historical, laboratory, and other data. Please refer to YUVAL Trinh note for details of this patient's presentation, findings, and recommendations. I have reviewed YUVAL Trinh note and concur with documented findings. In brief, patient is a 53-year-old gentleman with past medical history significant only for obstructive sleep apnea who presented with chest pain found to have elevated troponin consistent with acute non-STEMI. Admitted to monitored bed with consultation placed to cardiac 08/01/2018 patient seen still complains of intermittent chest discomfort scheduled to undergo left heart catheterization on 08/02/2018 Physical Examination: GENERAL: cooperative HEENT: Atraumatic; moist oral mucosa EYES; Anicteric, Normal Conjunctiva NECK; supple, normal thyroid, no distended JVD. RESPIRATORY: Diminished to auscultation bilaterally, CARDIOVASCULAR: Regular S1 S2, no audible murmurs GI: soft, non-tender, normoactive bowel sounds, : No Renal angle tenderness; EXTREMITIES: No edema, no clubbing, NEURO: Awake; no lateralizing signs. SKIN: No Rash PSYCH; Normal affect Assessment: 1. Acute non-STEMI 2. Palpitations EKG monitoring demonstrated only PVCs 3. Obstructive sleep apnea 4. Dyslipidemia 5. Essential hypertension stage I Recommendations: 1. I have discussed the results of my overview and impressions with the patient 2. Options for management were reviewed Code Visit Inpatient E&M: 11677 Subs Hosp L2
[2018-08-01] MEDS: Atorvastatin Calcium 40 MG Tablet PO (22:34)
[2018-08-02] VITALS (13 sets, daily range): BP systolic 100–111; BP diastolic 58–75; PULSE 52–74; RESP 16–18; TEMP 36.7–37.1; O2SAT 96–99
[2018-08-02 05:20] LABS: Hematocrit 43.6 % (40-54); Hemoglobin 14.7 g/dl (13.0-16.5); Mean Corp Hgb Conc 33.7 g/gl (32-36); Mean Corpuscular Hgb 28.4 pg (27.0-32.0); Mean Corpuscular Volume 84.3 fL (80-94); Mean Platelet Vol. 9.5 fl (6.2-12.0); Platelet Count 263 K/mm3 (150-450); RBC Distribution Width CV 12.4 % (11.6-14.6); RBC Distribution Width SD 37.8 fl (35.1-43.9); Red Blood Count 5.17 M/mm3 (4.6-6.2); White Blood Count 6.9 K/mm3 (4.4-11.0)
[2018-08-02 05:23] LABS: International Normalized Ratio 1.1
[2018-08-02 05:25] LABS: Partial Thromboplast Time 43.6 Seconds (24.1-36.2)
[2018-08-02 05:38] LABS: Anion Gap 10 (5-15); BUN 20 mg/dL (7-18); BUN/Creat Ratio 20.2 RATIO (10-20); Calcium,Total 8.7 mg/dL (8.5-10.1); Chloride 105 mmol/L (98-107); Creatinine, Serum 0.99 mg/dL (0.70-1.30); EST Glomerular Filtration Rate 85 mL/min (>60); Est Glom Filt Rate - Afr Amer 102 mL/min (>60); Estimated Creatinine Clearance 79.66 ml/min; Glucose 98 mg/dL (74-106); Potassium 4.1 mmol/L (3.5-5.1); Sodium Level 141 mmol/L (136-145)
[2018-08-02 05:43] LABS: Scan Indicated on CBC? Y/N NO
--- NOTE | 2018-08-02 05:55 | RAD_ITS ---
HISTORY: CHEST PAIN EXAM: XR Chest 1 View: Portable COMPARISON: None FINDINGS: EKG leads in place. Normal heart size. Prominent lung volumes. No vascular congestion, pleural effusion, or acute pulmonary infiltration. No pneumothorax. The bony thorax appears intact. RAD/Chest 1 View (Portable) IMPRESSION: No acute cardiopulmonary disease. at 0458 Reported and signed by: Jordin Perry MD Electronically Signed: Jordin Perry, at 4:56 EST Tel , Service support ,
--- NOTE | 2018-08-02 05:55 | EKG12_ITS ---
Test Reason : CP ADMIT Blood Pressure : / mmHG Vent. Rate : 069 BPM Atrial Rate : 069 BPM P-R Int : 148 ms QRS Dur : 092 ms QT Int : 396 ms P-R-T Axes : 072 070 052 degrees QTc Int : 424 ms Normal sinus rhythm Normal ECG No previous ECGs available Confirmed by WILLIS HERNANDEZ, LEIGHA ([id number]), newspaper editor JAKE PADILLA ([id number]) on 08/03/2018 4:09:32 PM Referred By: DR RAYA Confirmed By:LEIGHA PEDRO MD
[2018-08-02] MEDS: Metoprolol Tartrate 25 MG Tablet 12.5 MG PO (06:06)
[2018-08-02] MEDS: Aspirin E.C. 81 MG Tablet PO (06:06)
[2018-08-02] MEDS: Clopidogrel Bisulfate 75 MG Tablet PO (06:06)
--- NOTE | 2018-08-02 08:05 | PN.CARD_ITS ---
Subjectve: Patient seen and evaluated. Appears to be doing well. Objective: Vital Signs Temp Pulse Resp BP Pulse Ox 98.7 F 74 16 108/72 99 08/02/18 05:59 08/02/18 06:06 08/02/18 05:59 08/02/18 05:59 08/02/18 05:59 Oxygen Delivery Method Room Air Weight: 167 lb 12.348 oz Body Mass Index (BMI) 27.1 Intake and Output for Last 24 Hours 07/31/18 08/01/18 08/02/18 23:59 23:59 23:59 Intake Total 2342 / 2342 3326 / 3326 Balance 234 / 2342 3326 / 3326 General: Awake, Alert, Oriented x 3 HEENT: PERRL, EOMI, Sclera Non Icteric Neck: Supple, Good ROM, No Lymph Node Enlargement Lungs: Clear to auscultation Cardiovascular: Regular Rhythm, Normal S1, Normal S2, No Murmurs, No Rubs, No Gallops Vascular: No Carotid Bruits, Normal Femoral Pulses, Normal Radial Pulses, Normal Dorsalis Pedal Pulse, Normal Posterior Tibial Pulses Abdomen: Bowel Sounds Present, Soft, Non Tender, No HSM, No Organomegaly Extremities: No Cyanosis, No Clubbing, No edema Neurological: No Focal Motor or Sensory Deficit 08/02/18 04:38: PT 14.0, INR 1.1, APTT 43.6 H 08/02/18 04:38: Sodium 141, Potassium 4.1, Chloride 105, Carbon Dioxide 26.0, Anion Gap 10, BUN 20 H, Creatinine 0.99, Est GFR (MDRD) Af Amer 102, Est GFR (MDRD) Non-Af 85, BUN/Creatinine Ratio 20.2 H, Glucose 98, Calcium 8.7 08/02/18 04:38: WBC 6.9, RBC 5.17, Hgb 14.7, Hct 43.6, MCV 84.3, MCH 28.4, MCHC 33.7, RDW 12.4, RDW Differential 37.8, Plt Count 263, MPV 9.5 Rhythm: EKG: ECHO: Stress Test: Cardiac Cath: PCI: CT Surgery: Holter monitor: EPS: PPM: CXR: Chest CT Scan: Medical Necessity - Tobacco Use Smoking Status: Former smoker Tobacco Use: Non-smoker Assessment/Plan 1. Unstable angina Patient underwent cardiac catheterization today which demonstrated the following: Normal left main coronary artery. B Left anterior descending artery with no significant disease. Left circumflex artery with no significant disease. Dominant right coronary artery with no significant disease. Preserved left ventricular systolic function. Based on the above angiographic findings there is no apparent obstructive coronary disease. The patient can be discharged and followed up on an outpatient basis. Patient presented with chest discomfort and abnormal cardiac troponin enzymes. . 2. Hypertension * Blood pressure was noted to be elevated. * Recommend aggressive treatment of the above. * 3. Hyperlipidemia * He does have a history of mild lipid abnormalities. Would recommend the addition of high intensity statin. * * Thank you for allowing me to participate in the care of your patient. Please don't hesitate to call if any issues arise
--- NOTE | 2018-08-02 08:11 | CL.D_ITS ---
Patient Name: RODGER RAINES Study Date: 08/02/2018 Performing: Anthony Roach MD Ht: 66 inches 168 cm : 1965 Wt: 167.8 lbs 76 kg Age: 53 Gender: male BSA: 1.86 PROCEDURE(S) PERFORMED HT16-FRR/COR/LV CLINICAL PROFILE AND INDICATIONS Indications: Suspected CAD Heart Failure: None Stress/Imaging Stress/Image Study Performed: No CAD Presentations: Unstable angina. CONCLUSIONS Normal coronary arteries Normal LV size, wall motion,and systolic function RECOMMENDATIONS Medical therapy DESCRIPTION OF PROCEDURE The patient arrived to the procedure lab. The risks and benefits of the procedure as well as a full d escription of our services here and current unavailability of surgical backup were fully explained to the patient and/or their significant other prior to the catheterization. The Timeout was completed, verifying the correct patient and procedure. The patient's procedural site was prepped and draped in the usual fashion. Local anesthetic was given subcutaneously to right radial region with Lidocaine 2% . Using a modified Seldinger technique, arterial access was obtained via the right radial artery, a 6 Fr sheath was inserted. Right Coronary Artery selective angiography was then performed in multiple v iews using a 5 Fr. 4.0 [place] catheter. Left Coronary Artery selective angiography was performed in mu ltiple views using a 5 Fr. 4.0 [place] catheter. Left Ventriculography was performed in WHITE projection using a 5 Fr. [place] catheter. LV to AO pullback pressures were then recorded.The arterial sheath was pulled and a TR Band was applied for hemostasis, 14cc air in TR Band. CORONARY ANGIOGRAPHY DOMINANCE: Right Dominant LEFT HEART ASSESSMENT Left Ventricular Ejection Fraction: by LV Gram 65 % Normal LV wall motion Normal Left Ventricular systolic function Normal Left Ventricular systolic function LEFT MAIN: Angiographically normal LEFT ANTERIOR DECENDING ARTERY: Angiographically normal CIRCUMFLEX ARTERY: Angiographically normal RIGHT CORONARY ARTERY: Angiographically normal COMPLICATIONS No Complications PROCEDURE MEDICATIONS Versed 1 mg IV Fentanyl 50 mcg IV Oxygen: 2 L/min via nasal cannula Heparin diluted in 23cc Heparinized saline. Patient given 10cc IA of this solution. 08/02/2018 07:49 :19 Verapamil 2.5mg, Ntg 100mcgs, 2000 units of Heparin diluted in 23cc Heparinized saline. Patient give n 10cc IA of this solution. 08/02/2018 07:49:19 IV Fluids: .9 NaCl increased to wide open ml/hr, total of 200cc given 08/02/2018 07:52:45 SUMMARY OF HEMODYNAMIC DATA Time AIR REST ECG 07:29:37 AO 89/58 (74) SA 07:50:45 LV 106/0, 9 07:56:42 LV 108/0, 5 07:56:53 LV 92/0, 5 07:58:21 LVp 91/0, 5 07:58:26 AOp 93/58 (76) 07:58:31 Signed By Anthony Roach MD On 08/02/2018 08:10:29 Anthony Roach MD
[2018-08-02] MEDS: 0.9% Normal Saline 1,000 ML 60 ML IV (08:59)
[2018-08-02] MEDS: Famotidine 20 MG Tablet PO (09:00)
[2018-08-02] MEDS: 0.9% NaCl Peripheral Flush Adult/Peds IV (09:17)
--- NOTE | 2018-08-02 09:57 | PCM.DC ---
- Discharge Diagnoses Current Active Problems: Current Active and Chronic Problems Abnormal troponin Hyperlipidemia Obstructive sleep apnea You will use the following diet at home:: Cardiac Discharge Activity: - - No driving for 48 hours. No shower of tub bath for 24 hours. Avoid lifting over 10 lbs and pushing and pulling for 3 days. Call your doctor if your incision/area has: Continuous Slow Oozing, Sudden Increased Bleeding, Increased Pain/ Swelling, Increased Redness, Foul Smelling Discharge, Swelling at the incision site Call your doctor if you observe: Dizziness, Fainting spells, Chest pain Allergies/Adverse Reactions: Allergies ibuprofen Adverse Reaction (Verified 07/31/18 05:16) Hives Medications to take at Discharge Aspirin E.C. [Ecotrin] 81 mg PO DAILY@0800 #30 tab 08/02/18 Atorvastatin Calcium [Lipitor] 40 mg PO QHS #30 tab 08/02/18 The following prescriptions were given: Aspirin E.C. [Ecotrin] 81 mg PO DAILY@0800 #30 tab Atorvastatin Calcium [Lipitor] 40 mg PO QHS #30 tab Primary Care Physician: Robbie Collins DO [Primary Care Provider] - Please follow up with your Primary Care Physician in: 1 Week Test Results: Test results from this visit will be discussed in further detail at your follow-up appointment, if applicable. Please Follow Up With: Anthony Roach MD When: 2 Weeks Proposed Discharge Date: 08/02/18
--- NOTE | 2018-08-02 10:01 | DCINST_ITS ---
- Discharge Diagnoses Current Active Problems: Current Active and Chronic Problems Abnormal troponin Hyperlipidemia Obstructive sleep apnea You will use the following diet at home:: Cardiac Discharge Activity: - - No driving for 48 hours. No shower of tub bath for 24 hours. Avoid lifting over 10 lbs and pushing and pulling for 3 days. Call your doctor if your incision/area has: Continuous Slow Oozing, Sudden Increased Bleeding, Increased Pain/ Swelling, Increased Redness, Foul Smelling Discharge, Swelling at the incision site Call your doctor if you observe: Dizziness, Fainting spells, Chest pain Allergies/Adverse Reactions: Allergies ibuprofen Adverse Reaction (Verified 07/31/18 05:16) Hives Medications to take at Discharge Aspirin E.C. [Ecotrin] 81 mg PO DAILY@0800 #30 tab 08/02/18 Atorvastatin Calcium [Lipitor] 40 mg PO QHS #30 tab 08/02/18 The following prescriptions were given: Aspirin E.C. [Ecotrin] 81 mg PO DAILY@0800 #30 tab Atorvastatin Calcium [Lipitor] 40 mg PO QHS #30 tab Primary Care Physician: Robbie Collins DO [Primary Care Provider] - Please follow up with your Primary Care Physician in: 1 Week Test Results: Test results from this visit will be discussed in further detail at your follow- up appointment, if applicable. Please Follow Up With: Anthony Roach MD When: 2 Weeks Proposed Discharge Date: 08/02/18
--- NOTE | 2018-08-02 10:02 | PCM.DC.SUM ---
<Sylvia Marquez - Last Filed: 08/02/18 10:12> Discharge Date and Diagnosis Date of Admission: 07/31/18 Date of Discharge: 08/02/18 - Primary Discharge Diagnosis 1. Acute NSTEMI- cath with no obstructive coronary artery disease. 2. Hyperlipidemia 3. Obstructive sleep apnea - Secondary Discharge Diagnosis Chronic Problems LILIAM (obstructive sleep apnea) (Chronic) Hospital Course and Treatment Imaging Results: Diagnostic Data Chest X-Ray 08/02/18 05:55 IMPRESSION: No acute cardiopulmonary disease. at 0458 Reported and signed by: Jordin Perry MD Electronically Signed: Jordin Perry, at 4:56 EST Tel , Service support , Dr. Roach- Cardiology Operations: None Procedures: 2-D Echocardiogram, Cardiac catheterization Summary of Care Provided: The patient is a 53 year old M admitted 07/31/2018 due to chest pain. He has a past medical history of obstructive sleep apnea. 1. Acute NSTEMI-troponin 0.4, 0.3, 0.3. EKG without ST-T changes. Chest x-ray without acute findings. Cardiology consulted. Echo shows EF 55%, no evidence of diastolic dysfunction, structurally normal valves. Patient underwent cardiac catheterization which showed no obstructive coronary disease. Continue aspirin, statin. Follow-up with primary care physician in 1 week. Follow-up with cardiology in 2 weeks. 2. Mild elevated blood pressure on admission, 140/86. Blood pressure has been stable since that time. Metoprolol discontinued. 3. Hyperlipidemia-continue statin. 4. Obstructive sleep apnea-continue CPAP. General: Alert, Oriented x3, Cooperative HEENT: Atraumatic, PERRLA, EOMI, Normocephalic Neck: Supple, No JVD, Negative Carotid Bruits Lungs: Clear to auscultation, Normal air movement Cardiovascular: Regular rate, Regular Rhythm, Normal S1, Normal S2, No murmurs Abdomen: Bowel Sounds Present, Soft, Non Tender, Non-Distended Extremities: No clubbing, No cyanosis, No edema, Capillary Refill Less than 3 Seconds Skin: No rashes, No breakdown Musculoskeletal: No Tenderness to Palpation of Joints or Extremities Neurological: Cranial nerves II-XII grossly intact, Neuro grossly intact Psych/Mental Status: Normal Affect, Appropriate Patient seen and examined prior to discharge. Physical assessment as noted above. Patient is stable for discharge home with a follow-up of conditions as noted above. This patient was seen by YUVAL Trinh under the supervision of Dr. Tee. - Physical Exam Vital Signs Temp Pulse Resp BP Pulse Ox 98.7 F 74 16 108/72 99 08/02/18 05:59 08/02/18 06:06 08/02/18 05:59 08/02/18 05:59 08/02/18 05:59 Oxygen Delivery Method Room Air Weight: 167 lb 12.348 oz Body Mass Index (BMI) 27.1 Intake and Output for Last 24 Hours 07/31/18 08/01/18 08/02/18 23:59 23:59 23:59 Intake Total 2342 / 2342 3326 / 3326 Balance 2342 / 2342 3326 / 3326 Laboratory Tests Past 24 Hrs 08/02/18 08/02/18 08/02/18 04:38 04:38 04:38 WBC 6.9 RBC 5.17 Hgb 14.7 Hct 43.6 MCV 84.3 MCH 28.4 MCHC 33.7 RDW 12.4 RDW Differential 37.8 Plt Count 263 MPV 9.5 PT 14.0 INR 1.1 APTT 43.6 H Sodium 141 Potassium 4.1 Chloride 105 Carbon Dioxide 26.0 Anion Gap 10 BUN 20 H Creatinine 0.99 Estim Creat Clear Calc 79.66 Est GFR (MDRD) Af Amer 102 Est GFR (MDRD) Non-Af 85 BUN/Creatinine Ratio 20.2 H Glucose 98 Calcium 8.7 Discharge Diet: Low fat/ Low Cholesterol Discharge Activity: - - No driving for 48 hours. No shower of tub bath for 24 hours. Avoid lifting over 10 lbs and pushing and pulling for 3 days. Call your doctor if your incision/area has: Continuous Slow Oozing, Sudden Increased Bleeding, Increased Pain/ Swelling, Increased Redness, Foul Smelling Discharge, Swelling at the incision site Call your doctor if you observe: Dizziness, Fainting spells, Chest pain Home Medications: Medications to take at Discharge Aspirin E.C. [Ecotrin] 81 mg PO DAILY@0800 #30 tab 11/26/18 Atorvastatin Calcium [Lipitor] 40 mg PO QHS #30 tab 08/02/18 Following Prescrptions Were Given to Patient: Aspirin E.C. [Ecotrin] 81 mg PO DAILY@0800 #30 tab Atorvastatin Calcium [Lipitor] 40 mg PO QHS #30 tab Primary Care Physician: Robbie Collins DO [Primary Care Provider] - Please follow up with your Primary Care Physician in: 1 Week Please Follow Up With: Anthony Roach MD When: 2 Weeks Disposition: Home Minutes spent on discharge:: 35 Patient Condition:: Stable Medical Necessity - Tobacco Use Smoking Status: Former smoker Tobacco Use: Non-smoker Meaningful Use Info Meaningful Use Diagnoses (Choose all that apply): None applicable <Gerard Tee E - Last Filed: 08/03/18 15:30> Discharge Date and Diagnosis - Secondary Discharge Diagnosis Chronic Problems LILIAM (obstructive sleep apnea) (Chronic) Hospital Course and Treatment Summary of Care Provided: Hospitalist note: Discharge summary above as well as physical examination reviewed and I agree with above discharge plan. Patient was admitted for chest pain, found to have acute non-ST elevation SC. He underwent cardiac catheterization that revealed normal left main coronary artery, left anterior descending artery with no significant disease, left circumflex with no significant disease, dominant RCA with no significant disease and preserved ejection fraction. Patient was treated with aspirin and statins. History of the echocardiogram revealed ejection fraction of 55%, normal LV size and function, structurally normal valves. His routine blood work was unremarkable. His lipid profile revealed total cholesterol of 198, LDL cholesterol of 137 and HDL cholesterol 31. Chest x-ray no acute findings. Patient discharged home in a stable medical condition, discharged on aspirin and statins, recommended follow-up PCP in 1 week and follow-up with cardiology in 2 weeks. - Physical Exam Vital Signs Temp Pulse Resp BP Pulse Ox 98.6 F 60 18 100/64 98 08/02/18 11:00 08/02/18 11:00 08/02/18 11:00 08/02/18 11:08/02/18 11:00 Oxygen Delivery Method Room Air Weight: 167 lb 12.348 oz Body Mass Index (BMI) 27.1 Intake and Output for Last 24 Hours 07/31/18 08/01/18 08/02/18 23:59 23:59 23:59 Intake Total 2342 / 2342 3326 / 3326 Balance 2342 / 2342 2426 / 3326 Laboratory Tests Past 24 Hrs 08/02/18 08/02/18 08/02/18 04:38 04:38 04:38 WBC 6.9 RBC 5.17 Hgb 14.7 Hct 43.6 MCV 84.3 MCH 28.4 MCHC 33.7 RDW 12.4 RDW Differential 37.8 Plt Count 263 MPV 9.5 PT 14.0 INR 1.1 APTT 43.6 H Sodium 141 Potassium 4.1 Chloride 105 Carbon Dioxide 26.0 Anion Gap 10 BUN 20 H Creatinine 0.99 Estim Creat Clear Calc 79.66 Est GFR (MDRD) Af Amer 102 Est GFR (MDRD) Non-Af 85 BUN/Creatinine Ratio 20.2 H Glucose 98 Calcium 8.7 Disposition: Home Minutes spent on discharge:: 25 Patient Condition:: Stable Meaningful Use Info Meaningful Use Diagnoses (Choose all that apply): None applicable Code Visit OBSV E&M: 69506 Observation care discharge
--- NOTE | 2018-08-02 11:02 | PHA.DC.MC ---
Pharmacy Service has performed discharge medication reconciliation and counseling for this patient. The patient's discharge medication list was reviewed for discrepancies and discrepancies were resolved. The patient was counseled on the following discharge medications and changes in medications for homegoing were reviewed. The Reason for Use, instructions for use, and potential side effects were reviewed for all new medications. The patient's questions regarding all of their medications were answered. Home Medications Aspirin E.C. [Ecotrin] 81 mg PO DAILY@0800 #30 tab 08/02/18 Atorvastatin Calcium [Lipitor] 40 mg PO QHS #30 tab 08/02/18 The patient was able to verbalize understanding of medications
== END 2018-08-02 11:42 | disposition home or self-care (01) ==
PROVIDERS: Internal Medicine Cardiovascular Disease; Nurse Practitioner Family; Admitting Provider Family Medicine; Family Provider Preventive Medicine Occupational Medicine; PCP Preventive Medicine Occupational Medicine; Visit Provider Hospitalist
DX: I21.4 Non-ST elevation (NSTEMI) myocardial infarction (principal); E78.5 Hyperlipidemia, unspecified; G47.33 Obstructive sleep apnea (adult) (pediatric); Z82.49 Family history of ischemic heart disease and other diseases of the circulatory system; I10 Essential (primary) hypertension; Z87.891 Personal history of nicotine dependence
CPT/HCPCS: 36415; 71045; 80048; 80061; 83735; 84484; 85027; 85610; 85730; 93005; 93306; 93458; 96360; 96361; 96372; 97802; 99152; 99153; 99218; J7030; Q9967; A4216; C1769; C1894; G0378

== ENCOUNTER → 2024-10-03 | Outpatient (CLI) | payer SELFPAY ==
[2024-10-03 09:15] LABS: AST(SGOT) 19 U/L (15-37); Alanine Aminotransfer ALT/SGPT 30 U/L (16-61); Albumin, Serum 3.8 g/dL (3.2-5.0); Alkaline Phosphatase 87 U/L (45-117); Anion Gap 5 (5-15); BUN 12 mg/dL (7-18); BUN/Creat Ratio 12.1 RATIO (10-20); Calcium,Total 9.3 mg/dL (8.5-10.1); Chloride 105 mmol/L (98-107); Cholesterol 182 mg/dL (200); Creatinine, Serum 0.99 mg/dL (0.70-1.30); EST Glomerular Filtration Rate 82 mL/min (>60); Est Glom Filt Rate - Afr Amer 100 mL/min (>60); Glucose 101 mg/dL (74-106); High Density Lipoprotein 36 mg/dL; Potassium 3.8 mmol/L (3.5-5.1); Protein, Total 7.8 g/dL (6.4-8.2); Sodium Level 138 mmol/L (136-145); Triglycerides 192 mg/dL; Very Low Density Lipoprotein 38 mg/dL (5-40)
== END | disposition home or self-care (01) ==
PROVIDERS: PCP Nurse Practitioner Family; Referring Provider Nurse Practitioner Family; Visit Provider Nurse Practitioner Family
DX: E78.2 Mixed hyperlipidemia (principal)
CPT/HCPCS: 36415; 80053; 80061